=== PATIENT | male | born 1970 | race Caucasian/White ===

== ENCOUNTER 2016-11-12 11:03 | Emergency (ER) | payer MEDICARE, MEDICAID ==
[~2016-11-12] VITALS: Ht 188 cm; Wt 129.6 kg
[~2016-11-12 11:03] MED LIST: ALPR1TAB7 PO; ASPI-628 PO; DIVA250T12 PO; DIVA500T6 PO; EPIN0.3P17 IJ; FLUT16SP2 NS; LORA2TAB PO; OMEP20CA11 PO; RISP1TAB3 PO; RISP2TAB3 PO; SERT100T9 PO; [UNRECOGNIZED DRUG - CODE] PO
[2016-11-12 11:06] VITALS: BP 109/66; RESP 18; O2SAT 97
--- NOTE | 2016-11-12 11:11 | ED.REPORT ---
HPI-General Illness Date of Service Nov 12, 2016 ED Provider: Jacques Morgan MD A 45 year old male with a history of developmental delay, previous CVA, esophageal polyps and chronic dysphagia previously requiring endoscopy presents to the ED accompanied by his underwriting technician complaining of an esophageal foreign body that occurred just prior to arrival. The patient reportedly ate a sausage this morning and began to aspirate but was able to pass the food without vomiting. His symptoms resolved for a short period of time but returned again after he ingested 3/4 of a hot dog. Since ingestion of second FB, he has been unable to drink water without emesis. He denies any other symptoms at this time. Nursing Notes Stated Complaint: THROAT PAIN/UNABLE TO TALK,HARD TO BREATHE Chief Complaint: ENT & Mouth Nursing Notes Reviewed: Yes Allergies: Coded Allergies: No Known Allergies (Verified Allergy, Unknown, 11/08/15) Uncoded Allergies: BEES (Allergy, Severe, 06/19/14) Scheduled Aspirin (Aspir 81) 81 Mg Tablet.dr 81 MG PO DAILY Divalproex (Divalproex) 500 Mg Tablet.dr 500 MG PO HS Swallowed whole without chewing to avoid local irritation of the mouth and throat. Divalproex (Divalproex) 500 Mg Tablet.dr 750 MG PO NOON Swallowed whole without chewing to avoid local irritation of the mouth and throat. Divalproex ER (Divalproex ER) 250 Mg Tab.er.24h 750 MG PO AM *DAILY DOSING ONLY* Swallowed whole without chewing to avoid local irritation of the mouth and throat. Fluticasone Propionate (Flonase Nasal) 16 Gm [place].susp 2 SPRAYS NS AM Omeprazole (Omeprazole) 20 Mg Capsule.dr 20 MG PO BID Risperidone (Risperidone) 1 Mg Tablet 1.5 MG PO AM Risperidone (Risperidone) 1 Mg Tablet 1 MG PO HS Risperidone (Risperidone) 2 Mg Tablet 2 MG PO BID Sertraline HCl (Sertraline) 100 Mg Tablet 200 MG PO DAILY Scheduled PRN Alprazolam (Alprazolam) 1 Mg Tablet 1 MG PO TID PRN PRN For Anxiety Lorazepam (Lorazepam) 2 Mg Tablet 2 MG PO BID PRN PRN For Anxiety Miscellaneous Medications Acetaminophen (Acetaminophen 8 Hour) 650 Mg Tablet.er 650 MG PO Epinephrine (Epinephrine) 0.3 Mg/0.3 Ml Auto.injct 0.3 MG IJ General Time Seen by MD: 11:10 Chief Complaint Other (Dysphagia) Hx Obtained From: Patient, Nonprofit Director Arrived By: Walk-in Sudden in Onset?: Yes Onset Occurred: 1 - 4 hours ago Symptom Duration: Since onset Pertinent Negative: Pt denies other symptoms Recent Healthcare: No recent doctor visit, No recent hospitalization Past Medical History Past Medical History Developmentally delayed Repeat sex offender CVA Esophageal polyps Chronic dysphagia previously requiring endoscopy Past Surgical History None reported Smoking History Never Smoker Social History Alcohol Use: Denies alcohol use Drug Use: Denies drug use Other Social History: Lives in rehab facility Ambulatory Status Independent Review of Systems + dysphagia + FB ingestion Full Review of Systems Ears / Nose / Throat: Reports: Throat pain (throat discomfort) Respiratory: Reports: Shortness of breath (secondary to FB ingestion) Complete sys rev & neg: except as marked. Physical Exam Vital Signs Vital Signs Date Time Temp Pulse Resp B/P Pulse Ox O2 Delivery O2 Flow Rate FiO2 11/12/16 11:06 36.6 102 18 109/66 97 Room Air Initial VS: Reviewed Neck: Supple, Non-tender, Full range of motion Extremities: Vascular intact, Neuro intact, No swelling, No tenderness Skin: Warm, Dry, No cyanosis Psychiatric: Mood/affect normal, Behavior normal, Normal thought content General/Constitutional: Awake, Alert, No acute distress Head / Eyes: Atraumatic, Normocephalic, PERRL ENT: Atraumatic, Mucous membranes moist, Tympanic membs NL, Ext aud canal NL ENT: Unable to visualize FB Respiratory / Chest: Atraumatic, Breath sounds NL, Breath sounds = bilat, No respiratory distress Cardiovascular: Heart rate NL, Regular rhythm, Heart sounds NL, No murmurs Abdomen: Atraumatic, Soft, Non-tender Interpretation & Diagnostics X-Ray Chest Interpretation Chest Xray Interpretation: IMPRESSION: No radiopaque foreign body. Dictated by: Ofe Amin M.D. on 11/12/2016 at 11:48 Interpretation / Wet Read by: Interpret - Radiologist Re-Eval/Medical Decision Med Decision/Clinical Course 46-year-old male with developmental delay history of CVA with slurred speech from previous CVA presenting with salvage of foreign body. Patient ate a hot dog earlier today and has been unable to swallow or manage his secretions since then. On arrival he was unable to manage his secretions. He was given glucagon and Coca-Cola and his symptoms resolved. His foreign body sensation also resolved. Patient was tolerating by mouth. Discussed with GI we will discharge home with plans to follow up with GI doctor as an outpatient for repeat endoscopy within 10 days. Return precautions given if symptoms return. Time of Eval: 11:23 Re-Evaluation/Progress Note: PO challenge assigned. Patient fails the PO challenge. Agrees with plan to consult GI. Time of Eval: 11:55 Patient Status: Condition improved Re-Evaluation/Progress Note: Patient able to swallow following glucagon treatment. Symptoms have sigificantly improved upon recheck. + 5 successful swallows. Consultation : Referral / Consult Name: Steven Palencia MD Call Returned at: 11:38 Pipe Line Inspector: Will see patient, Agrees with eval, Agrees with plan Note: Discussed patient condition. Recommends glucagon treatment. Counseled Regarding: Diagnosis, Lab results, Need for follow-up, When/why to return to ED Discharge & Departure Primary Impression: Esophageal foreign body Encounter type: initial encounter Qualified Code: T18.108A - Unspecified foreign body in esophagus causing other injury, initial encounter Disposition: Home Discharge Condition All VS Reviewed: Yes Condition: Improved Patient Instructions: Dysphagia (ED), Esophageal Foreign Body (ED) Additional Instructions: Thank you for trusting us with your care this morning. Your emergency department evaluation today is reassuring that there is no emergent cause for concern at this time. The glucagon treatment was successful in resolving the foreign body in your esophagus. Schedule a follow up appointment with your primary care physician on Monday for a recheck. Follow up with GI within 10 days. Continue to take your home medications as directed. Please return to the emergency department for any new or worsening symptoms including any difficulty swallowing, difficulty breathing, secondary ingestion of foreign body or any other symptoms of concern to you. Referrals: Yonny Jones MD (PCP) Scribe Attestation Portions of this note were transcribed by Dirk Haney. I, Dr. Morgan personally performed the history, physical exam and medical decision-making; I reviewed and confirmed the accuracy of the information in the transcribed note. Signed by Navdeep Granger, 11/12/16. copies to: Yonny Jones MD, Ben M MD Nov 12, 2016 11:11 DIRK HANEY Nov 12, 2016 11:45
[2016-11-12] MEDS ORDERED: Glucagon 1 mg/mL Inj IV ONE (11:45)
--- NOTE | 2016-11-12 11:55 | DRSVH ---
PROCEDURE: X-RAY NECK SOFT TISSUE ([id number]) INDICATIONS: foreign body TECHNIQUE: 2 views of the neck were acquired. COMPARISON: None. FINDINGS: Airway: The airway appears patent. Soft tissues: Prevertebral soft tissues are normal in thickness. The epiglottis and aryepiglottic f olds appear normal. No soft tissue gas. Bones: No suspicious bony lesions. Visualized cervical spine is normally aligned. IMPRESSION: No radiopaque foreign body. Dictated by: Ofe Amin M.D. on 11/12/2016 at 11:48 Approved by: Ofe Amin M.D. on 11/12/2016 at 11:49
== END 2016-11-12 12:23 | disposition home or self-care (01) ==
LOC: SED 11:03
DX: T18.128A Food in esophagus causing other injury, initial encounter (principal); X58.XXXA Exposure to other specified factors, initial encounter; Y93.89 Activity, other specified; Y92.009 Unspecified place in unspecified non-institutional (private) residence as the place of occurrence of the external cause; Y99.8 Other external cause status; Z86.73 Personal history of transient ischemic attack (TIA), and cerebral infarction without residual deficits; Z79.82 Long term (current) use of aspirin; Z91.030 Bee allergy status
CPT/HCPCS: 70360; 96374; 99284; J1610